=== PATIENT | male | born 1965 | race Caucasian/White ===

== ENCOUNTER 2017-02-11 16:58 | Emergency (ER) | payer OTHER, MEDICAID, MEDICARE ==
[2017-02-11] MEDS: DIPHTH/TET/ACEL PERTUSS (ADULT) 0.5 ML VIAL IM* (17:28)
== END 2017-02-11 18:39 ==
LOC: E/R 16:58
DX: R45.851 Suicidal ideations (principal); T75.4XXA Electrocution, initial encounter; I10 Essential (primary) hypertension; Z85.038 Personal history of other malignant neoplasm of large intestine; Z23 Encounter for immunization
CPT/HCPCS: 90471; 90715; 99283-25